=== PATIENT | female | born 1960 | race Caucasian/White ===

== ENCOUNTER 2017-09-01 11:40 | Inpatient (IN) | payer OTHER ==
[~2017-09-01] VITALS: Ht 167.6 cm; Wt 85.8 kg
[~2017-09-01 11:40] MED LIST: ABAC300; ACET325 PO; ASPI325 PO; Benadryl 50 mg50 MG PO; CIMZIA400 MG/2 M SQ; CLARITIN10 MG PO; DIPH50 PO; DULO60 PO; EPIN.3I IM; Epipen0.3 MG/0.3 IM; FAMO40 PO; FOLI1 PO; INSDET100 SQ; INSLIS75I SC; INSULANPEN SC; K-Dur20 MEQ PO; LEVEMIR FL100 UNIT/1 SC; METTREX2.5 PO; Methotrexa25 MG/1 ML; Methotrexate 1 G1 GM IM; PRED10 PO; PRED5 PO; Pepcid20 MG PO; Pepcid40 MG PO; Prednisone20 MG PO; RANI150 PO; RITUXAN; Rituxan10 MG/ML IV; SACC250C PO; SULTRIDS PO; Vistaril50 MG PO; ZYRTEC10 M1 PO; ZYRTEC10 M2 PO; Zantac150 MG PO
[2017-09-01 12:07] LABS: BASOPHILS ABSOLUTE AUTO 0.06 K/mm3 (0.00-0.23); BASOPHILS PERCENT AUTO 0 % (0-2); EOSINOPHILS PERCENT AUTO 0 % (0-6); Hematocrit 51.5 % (33.0-51.0); Hemoglobin 16.8 g/dL (11.5-16.0); IMMATURE GRAN ABSOLUTE AUTO 0.12 K/mm3 (0.00-0.10); IMMATURE GRAN PERCENT AUTO 1 % (0-1); LYMPHOCYTES ABSOLUTE AUTO 0.53 K/mm3 (0.84-5.20); LYMPHOCYTES PERCENT AUTO 4 % (21-46); MONOCYTES ABSOLUTE AUTO 1.58 K/mm3 (0.16-1.47); MONOCYTES PERCENT AUTO 11 % (4-13); Mean Corpuscular HGB 30.9 pg (26.0-34.0); Mean Corpuscular HGB Conc 32.6 g/dL (31.5-36.5); Mean Corpuscular Volume 95 fL (80-100); Mean Platelet Volume 9.6 fL (9.1-12.4); NEUTROPHILS ABSOLUTE AUTO 11.65 K/mm3 (1.96-9.15); NEUTROPHILS PERCENT AUTO 84 % (41-73); Platelet Count 194 K/mm3 (150-400); RDW Standard Deviation 42.1 fL (35.1-46.3); Red Blood Cell Count 5.43 M/mm3 (3.80-5.20); White Blood Cell Count 13.94 K/mm3 (4.00-11.30)
[2017-09-01 12:24] LABS: Influenza A Positive (NEGATIVE); Influenza B Negative (NEGATIVE)
[2017-09-01 12:29] LABS: Troponin I <0.015 ng/mL (0.000-0.040)
[2017-09-01 12:42] LABS: Alanine Aminotransfer (ALT/SGP 22 U/L (12-78); Albumin, Blood 3.2 g/dL (3.4-5.0); Albumin/Globulin Ratio 0.8 (0.8-1.8); Alk Phos 107 U/L (50-136); Aspartate Aminotrans (AST/SGOT 24 U/L (12-37); Bilirubin, Total 0.6 mg/dL (0.1-1.0); Blood Urea Nitrogen 36 mg/dL (8-24); Bun/Creatinine Ratio 73.8 (12.0-20.0); Calcium, Blood 8.5 mg/dL (8.5-10.1); Creatinine, Blood 0.49 mg/dL (0.40-1.00); Globulin, Blood 4.1 g/dL (2.2-4.0); Glomerular Filtration Rate >60 (60-); Glucose, Blood 348 mg/dL (70-99); Total Protein, Blood 7.3 g/dL (6.4-8.2)
[2017-09-01 12:53] LABS: Chloride, Blood 96 mmol/L (98-108); Potassium, Blood 4.9 mmol/L (3.5-5.5); Sodium, Blood 127 mmol/L (136-145)
[2017-09-01 13:10] LABS: Anion Gap 23 mmol/L (6-16)
[2017-09-01 13:12] LABS: CO2, Blood 8 mmol/L (21-32)
[2017-09-01 14:17] LABS: Base Excess Venous -22.6 mmol/L; Bicarbonate Venous 10.3 mmol/L (24.0-30.0); PO2 Venous 94.9 mmHg (38-42); pH Blood Venous 7.09 (7.34-7.37)
[2017-09-01 14:34] LABS: Beta-hydroxybutyrate 86.3 mg/dL (0.2-2.8)
[2017-09-01 18:31] LABS: Anion Gap 19 mmol/L (6-16); Blood Urea Nitrogen 27 mg/dL (8-24); Bun/Creatinine Ratio 64.7 (12.0-20.0); CO2, Blood 9 mmol/L (21-32); Calcium, Blood 7.6 mg/dL (8.5-10.1); Chloride, Blood 104 mmol/L (98-108); Creatinine, Blood 0.42 mg/dL (0.40-1.00); Glomerular Filtration Rate >60 (60-); Glucose, Blood 162 mg/dL (70-99); Potassium, Blood 3.9 mmol/L (3.5-5.5); Sodium, Blood 132 mmol/L (136-145)
[2017-09-02 04:13] LABS: Anion Gap 14 mmol/L (6-16); Blood Urea Nitrogen 17 mg/dL (8-24); Bun/Creatinine Ratio 57.6 (12.0-20.0); CO2, Blood 15 mmol/L (21-32); Calcium, Blood 7.6 mg/dL (8.5-10.1); Chloride, Blood 101 mmol/L (98-108); Glomerular Filtration Rate >60 (60-); Glucose, Blood 201 mg/dL (70-99); Potassium, Blood 3.3 mmol/L (3.5-5.5); Sodium, Blood 130 mmol/L (136-145)
[2017-09-02 09:21] LABS: Source, Urine Clean Catch
[2017-09-02 09:23] LABS: Bilirubin, Urine Neg (Neg); Blood, Urine 1+ (Neg); Glucose Qualitative, Urine 4+ (Neg); Ketones, Urine 4+ (Neg); Leukocyte Esterase, Urine Neg (Neg); Nitrite, Urine Neg (Neg); Protein, Urine 2+ (Neg); Urobilinogen, Urine NORM (Normal)
[2017-09-02 09:35] LABS: Appearance, Urine Hazy (Clear); Color, Urine Yellow (P-Yellow)
[2017-09-02 09:39] LABS: White Blood Cells, Urine 0-2 /hpf (0-5)
[2017-09-02 09:40] LABS: Bacteria Few /hpf; Granular Casts 0-2 /lpf (0); Red Blood Cells, Urine 0-2 /hpf (0-2); Squamous Epithelial Cells Rare /hpf (Few)
[2017-09-02 09:43] LABS: Magnesium, Blood 1.8 mg/dL (1.6-2.4)
[2017-09-02 09:47] LABS: Phosphorus, Blood 0.7 mg/dL (2.5-4.9)
[2017-09-02 12:40] LABS: BASOPHILS ABSOLUTE AUTO 0.04 K/mm3 (0.00-0.23); BASOPHILS PERCENT AUTO 1 % (0-2); Hematocrit 41.8 % (33.0-51.0); Hemoglobin 14.8 g/dL (11.5-16.0); LYMPHOCYTES ABSOLUTE AUTO 0.48 K/mm3 (0.84-5.20); LYMPHOCYTES PERCENT AUTO 6 % (21-46); MONOCYTES ABSOLUTE AUTO 1.27 K/mm3 (0.16-1.47); MONOCYTES PERCENT AUTO 16 % (4-13); Mean Corpuscular HGB Conc 35.4 g/dL (31.5-36.5); Mean Platelet Volume 9.5 fL (9.1-12.4); Platelet Count 147 K/mm3 (150-400); RDW Coefficient Variation 11.6 % (11.7-14.2); RDW Standard Deviation 37.5 fL (35.1-46.3); Red Blood Cell Count 4.78 M/mm3 (3.80-5.20); White Blood Cell Count 8.12 K/mm3 (4.00-11.30)
[2017-09-02 12:42] LABS: EOSINOPHILS PERCENT AUTO 0 % (0-6); IMMATURE GRAN ABSOLUTE AUTO 0.02 K/mm3 (0.00-0.10); IMMATURE GRAN PERCENT AUTO 0 % (0-1); Mean Corpuscular Volume 87 fL (80-100); NEUTROPHILS ABSOLUTE AUTO 6.31 K/mm3 (1.96-9.15); NEUTROPHILS PERCENT AUTO 78 % (41-73)
[2017-09-02 12:51] LABS: Anion Gap 13 mmol/L (6-16); Blood Urea Nitrogen 13 mg/dL (8-24); Bun/Creatinine Ratio 43.5 (12.0-20.0); CO2, Blood 15 mmol/L (21-32); Chloride, Blood 103 mmol/L (98-108); Glomerular Filtration Rate >60 (60-); Glucose, Blood 172 mg/dL (70-99); Potassium, Blood 3.8 mmol/L (3.5-5.5); Sodium, Blood 131 mmol/L (136-145)
[2017-09-02 13:08] LABS: BASOPHILS PERCENT MAN 0 % (0-2); EOSINOPHILS PERCENT MAN 0 % (0-6); LYMPHOCYTES ABSOLUTE MAN 1.05 K/mm3 (0.84-5.20); LYMPHOCYTES PERCENT MAN 13 % (21-46); MONOCYTES ABSOLUTE MAN 0.32 K/mm3 (0.16-1.47); MONOCYTES PERCENT MAN 4 % (4-13); NEUTROPHILS ABSOLUTE MAN 6.73 K/mm3 (1.96-9.15); SEG NEUTROPHILS PERCENT MAN 83 % (41-73); TOTAL CELLS COUNTED 100
[2017-09-03 03:36] LABS: BASOPHILS ABSOLUTE AUTO 0.02 K/mm3 (0.00-0.23); BASOPHILS PERCENT AUTO 0 % (0-2); Hematocrit 41.4 % (33.0-51.0); Hemoglobin 14.3 g/dL (11.5-16.0); LYMPHOCYTES ABSOLUTE AUTO 0.64 K/mm3 (0.84-5.20); LYMPHOCYTES PERCENT AUTO 8 % (21-46); MONOCYTES ABSOLUTE AUTO 1.16 K/mm3 (0.16-1.47); MONOCYTES PERCENT AUTO 15 % (4-13); Mean Corpuscular HGB 30.9 pg (26.0-34.0); Mean Corpuscular HGB Conc 34.5 g/dL (31.5-36.5); Mean Corpuscular Volume 89 fL (80-100); Mean Platelet Volume 9.4 fL (9.1-12.4); Platelet Count 125 K/mm3 (150-400); RDW Coefficient Variation 12.1 % (11.7-14.2); RDW Standard Deviation 39.9 fL (35.1-46.3); Red Blood Cell Count 4.63 M/mm3 (3.80-5.20); White Blood Cell Count 7.64 K/mm3 (4.00-11.30)
[2017-09-03 03:54] LABS: Alanine Aminotransfer (ALT/SGP 13 U/L (12-78); Albumin/Globulin Ratio 0.6 (0.8-1.8); Alk Phos 67 U/L (50-136); Anion Gap 13 mmol/L (6-16); Aspartate Aminotrans (AST/SGOT 14 U/L (12-37); Bilirubin, Total 0.5 mg/dL (0.1-1.0); Blood Urea Nitrogen 11 mg/dL (8-24); Bun/Creatinine Ratio 36.7 (12.0-20.0); CO2, Blood 16 mmol/L (21-32); Calcium, Blood 7.5 mg/dL (8.5-10.1); Chloride, Blood 109 mmol/L (98-108); Globulin, Blood 3.6 g/dL (2.2-4.0); Glomerular Filtration Rate >60 (60-); Glucose, Blood 181 mg/dL (70-99); Phosphorus, Blood 1.1 mg/dL (2.5-4.9); Potassium, Blood 3.4 mmol/L (3.5-5.5); Sodium, Blood 138 mmol/L (136-145); Total Protein, Blood 5.6 g/dL (6.4-8.2)
[2017-09-03 03:55] LABS: EOSINOPHILS PERCENT AUTO 0 % (0-6); IMMATURE GRAN ABSOLUTE AUTO 0.04 K/mm3 (0.00-0.10); IMMATURE GRAN PERCENT AUTO 1 % (0-1); NEUTROPHILS ABSOLUTE AUTO 5.78 K/mm3 (1.96-9.15); NEUTROPHILS PERCENT AUTO 76 % (41-73)
[2017-09-04 04:05] LABS: BASOPHILS ABSOLUTE AUTO 0.02 K/mm3 (0.00-0.23); BASOPHILS PERCENT AUTO 0 % (0-2); EOSINOPHILS ABSOLUTE AUTO 0.03 K/mm3 (0.00-0.68); EOSINOPHILS PERCENT AUTO 0 % (0-6); Hematocrit 38.1 % (33.0-51.0); Hemoglobin 13.6 g/dL (11.5-16.0); IMMATURE GRAN ABSOLUTE AUTO 0.09 K/mm3 (0.00-0.10); IMMATURE GRAN PERCENT AUTO 1 % (0-1); LYMPHOCYTES ABSOLUTE AUTO 1.03 K/mm3 (0.84-5.20); LYMPHOCYTES PERCENT AUTO 13 % (21-46); MONOCYTES ABSOLUTE AUTO 1.08 K/mm3 (0.16-1.47); MONOCYTES PERCENT AUTO 14 % (4-13); Mean Corpuscular HGB 31.3 pg (26.0-34.0); Mean Corpuscular HGB Conc 35.7 g/dL (31.5-36.5); Mean Corpuscular Volume 88 fL (80-100); Mean Platelet Volume 9.6 fL (9.1-12.4); NEUTROPHILS ABSOLUTE AUTO 5.72 K/mm3 (1.96-9.15); NEUTROPHILS PERCENT AUTO 72 % (41-73); Platelet Count 128 K/mm3 (150-400); RDW Coefficient Variation 12.1 % (11.7-14.2); RDW Standard Deviation 39.5 fL (35.1-46.3); Red Blood Cell Count 4.34 M/mm3 (3.80-5.20); White Blood Cell Count 7.97 K/mm3 (4.00-11.30)
[2017-09-04 04:22] LABS: Anion Gap 13 mmol/L (6-16); Blood Urea Nitrogen 7 mg/dL (8-24); Bun/Creatinine Ratio 23.4 (12.0-20.0); CO2, Blood 21 mmol/L (21-32); Calcium, Blood 7.8 mg/dL (8.5-10.1); Chloride, Blood 105 mmol/L (98-108); Glomerular Filtration Rate >60 (60-); Glucose, Blood 183 mg/dL (70-99); Magnesium, Blood 1.9 mg/dL (1.6-2.4); Phosphorus, Blood 1.1 mg/dL (2.5-4.9); Sodium, Blood 139 mmol/L (136-145)
[2017-09-04 17:06] LABS: Anion Gap 10 mmol/L (6-16); Blood Urea Nitrogen 10 mg/dL (8-24); Bun/Creatinine Ratio 33.1 (12.0-20.0); CO2, Blood 22 mmol/L (21-32); Calcium, Blood 8.3 mg/dL (8.5-10.1); Chloride, Blood 106 mmol/L (98-108); Glomerular Filtration Rate >60 (60-); Glucose, Blood 185 mg/dL (70-99); Potassium, Blood 3.4 mmol/L (3.5-5.5); Sodium, Blood 138 mmol/L (136-145)
[2017-09-05 09:04] LABS: Anion Gap 9 mmol/L (6-16); Blood Urea Nitrogen 8 mg/dL (8-24); Bun/Creatinine Ratio 31.5 (12.0-20.0); CO2, Blood 25 mmol/L (21-32); Calcium, Blood 8.2 mg/dL (8.5-10.1); Chloride, Blood 102 mmol/L (98-108); Creatinine, Blood 0.25 mg/dL (0.40-1.00); Glomerular Filtration Rate >60 (60-); Glucose, Blood 203 mg/dL (70-99); Sodium, Blood 136 mmol/L (136-145)
[2017-09-05] MEDS ORDERED: ACET500 PO (13:39)
[2017-09-05] MEDS ORDERED: OSEL75CA PO (13:40)
[2017-09-05] MEDS ORDERED: PANT40 PO (13:41)
[2017-09-05] MEDS ORDERED: K-Phos Origina500 MG PO (13:43)
[2017-09-05] MEDS ORDERED: Levaquin750 MG PO (13:44)
[2017-09-05] MEDS ORDERED: Micro-K10 MEQ PO (13:46)
[2017-09-05 19:07] LABS: Anion Gap 9 mmol/L (6-16); Blood Urea Nitrogen 6 mg/dL (8-24); Bun/Creatinine Ratio 24.3 (12.0-20.0); CO2, Blood 26 mmol/L (21-32); Calcium, Blood 7.9 mg/dL (8.5-10.1); Chloride, Blood 103 mmol/L (98-108); Creatinine, Blood 0.25 mg/dL (0.40-1.00); Glomerular Filtration Rate >60 (60-); Glucose, Blood 203 mg/dL (70-99); Potassium, Blood 3.4 mmol/L (3.5-5.5); Sodium, Blood 138 mmol/L (136-145)
== END 2017-09-05 19:40 | disposition home or self-care (01) | DRG 871 ==
LOC: ER 11:40 → ICUW 13:23 → ERHOLD 13:23 → ICUW 16:57 → PCU 09-04 14:43
PROVIDERS: Family Medicine; Internal Medicine; Physician Assistant
PROC: 3E0234Z Introduction of Serum, Toxoid and Vaccine into Muscle, Percutaneous Approach (ICD-10-PCS; principal; 2017-09-01)
DX: A41.9 Sepsis, unspecified organism (principal); E11.10 Type 2 diabetes mellitus with ketoacidosis without coma; J10.00 Influenza due to other identified influenza virus with unspecified type of pneumonia; D75.1 Secondary polycythemia; E83.39 Other disorders of phosphorus metabolism; E87.1 Hypo-osmolality and hyponatremia; E86.9 Volume depletion, unspecified; Z23 Encounter for immunization; M06.9 Rheumatoid arthritis, unspecified; M85.80 Other specified disorders of bone density and structure, unspecified site; E87.6 Hypokalemia
CPT/HCPCS: 36415; 51702; 71045; 71046; 80048; 80053; 81001; 82010; 82803; 82947; 83605; 83735; 84100; 84484; 85025; 87040; 87493; 87804; 93005; 93010; 96361; 96374; 97116; 97162; 99285; C9113; G8978; G8979; J0456; J0610; J0696; J1650; J1815; J2001; J3370; J3480; J7030; J7040; J7050; J7060; J7070

== ENCOUNTER → 2020-07-08 | Outpatient (CLI) | payer OTHER ==
[~2020-07-08] MED LIST changes: +ACET500 PO; +ASPI81CH PO; +ATOR80 PO; +CHOLECALCIFEROL PO; +K-Phos Origina500 MG PO; +Levaquin750 MG PO; +METFORMIN HCL500 M3 PO; +METO25ER PO; +Micro-K10 MEQ PO; +OSEL75CA PO; +PANT40 PO; +TICA90TA PO
== END | disposition home or self-care (01) ==
LOC: LAB 13:02
DX: L02.31 Cutaneous abscess of buttock (principal)
CPT/HCPCS: 87070; 87075; 87205

== ENCOUNTER 2020-08-27 04:06 | Inpatient (IN) | payer OTHER ==
[~2020-08-27] VITALS: Ht 175.3 cm; Wt 92.8 kg
[~2020-08-27 04:06] MED LIST changes: -ASPI81CH PO; -ATOR80 PO; -CHOLECALCIFEROL PO; -METFORMIN HCL500 M3 PO; -METO25ER PO; -TICA90TA PO
[2020-08-27 04:25] LABS: Calcium, Ionized (POC) 0.96 mmol/L (1.10-1.46); Chloride (POC) 103 mmol/L (98-108); Creatinine (POC) 0.5 mg/dL (0.6-1.0); Glucose (ISTAT POC) 323 mg/dL (70-99); Hemoglobin (POC) 19.4 g/dL (12.0-16.0); Potassium (POC) 7.6 mmol/L (3.5-5.5); Sodium (POC) 131 mmol/L (135-148); Total CO2 (POC) 26 mmol/L (21-32)
[2020-08-27 04:38] LABS: Hematocrit 54.8 % (33.0-51.0); Hemoglobin 18.5 g/dL (11.5-16.0); Mean Corpuscular HGB Conc 33.8 g/dL (31.5-36.5); Mean Corpuscular Volume 92 fL (80-100); Mean Platelet Volume 10.6 fL (9.1-12.4); Platelet Count 238 K/mm3 (150-400); RDW Coefficient Variation 11.9 % (11.7-14.2); RDW Standard Deviation 40.4 fL (35.1-46.3); Red Blood Cell Count 5.96 M/mm3 (3.80-5.20); White Blood Cell Count 11.41 K/mm3 (4.00-11.30)
[2020-08-27 05:44] LABS: BASOPHILS ABSOLUTE AUTO 0.06 K/mm3 (0.00-0.23); BASOPHILS PERCENT AUTO 1 % (0-2); EOSINOPHILS ABSOLUTE AUTO 0.14 K/mm3 (0.00-0.68); EOSINOPHILS PERCENT AUTO 1 % (0-6); Hematocrit 47.6 % (33.0-51.0); Hemoglobin 15.8 g/dL (11.5-16.0); IMMATURE GRAN ABSOLUTE AUTO 0.09 K/mm3 (0.00-0.10); IMMATURE GRAN PERCENT AUTO 1 % (0-1); LYMPHOCYTES PERCENT AUTO 10 % (21-46); MONOCYTES ABSOLUTE AUTO 0.64 K/mm3 (0.16-1.47); MONOCYTES PERCENT AUTO 5 % (4-13); Mean Corpuscular HGB 30.6 pg (26.0-34.0); Mean Corpuscular HGB Conc 33.2 g/dL (31.5-36.5); Mean Corpuscular Volume 92 fL (80-100); NEUTROPHILS ABSOLUTE AUTO 10.32 K/mm3 (1.96-9.15); NEUTROPHILS PERCENT AUTO 82 % (41-73); Platelet Count 225 K/mm3 (150-400); RDW Coefficient Variation 11.8 % (11.7-14.2); RDW Standard Deviation 40.5 fL (35.1-46.3); Red Blood Cell Count 5.17 M/mm3 (3.80-5.20); White Blood Cell Count 12.55 K/mm3 (4.00-11.30)
[2020-08-27 06:01] LABS: International Normalized Ratio 1.07; Prothrombin Time Results 11.4 Sec (9.7-11.5)
[2020-08-27 06:08] LABS: Alanine Aminotransfer (ALT/SGP 26 U/L (12-78); Albumin, Blood 2.7 g/dL (3.4-5.0); Albumin/Globulin Ratio 0.8 (0.8-1.8); Alk Phos 70 U/L (50-136); Anion Gap 9 mmol/L (6-16); Aspartate Aminotrans (AST/SGOT 53 U/L (12-37); Bilirubin, Total 0.5 mg/dL (0.1-1.0); Blood Urea Nitrogen 18 mg/dL (8-24); Bun/Creatinine Ratio 41.8 (12.0-20.0); CHOL/HDL RATIO 3.6; CO2, Blood 23 mmol/L (21-32); Chloride, Blood 104 mmol/L (98-108); Cholesterol 186 mg/dL (50-200); Creatinine, Blood 0.43 mg/dL (0.40-1.00); Globulin, Blood 3.4 g/dL (2.2-4.0); Glomerular Filtration Rate >60 (60-); Glucose, Blood 321 mg/dL (70-99); HDL Cholesterol 51 mg/dL (>39); LDL/HDL RATIO 2.4; Low Density Lipoprotein Chol 121 mg/dL (0-110); Potassium, Blood 4.2 mmol/L (3.5-5.5); Sodium, Blood 136 mmol/L (136-145); Total Protein, Blood 6.1 g/dL (6.4-8.2); Triglycerides 69 mg/dL (30-160); Very Low Density Lipoprot Chol 13 mg/dL (6-32)
[2020-08-27 06:42] LABS: Influenza A, PCR NEGATIVE (NEGATIVE); Influenza B, PCR NEGATIVE (NEGATIVE); Resp Syncytial Virus, PCR NEGATIVE (NEGATIVE); SARS-Cov-2 (COVID-19) PCR, MMC NEGATIVE (NEGATIVE)
[2020-08-27] MEDS ORDERED: CHOLECALCIFEROL PO (07:07)
[2020-08-27] MEDS ORDERED: METFORMIN HCL500 M3 PO (07:08)
--- NOTE | 2020-08-27 07:32 | NUR ---
manager labor relations to ICU-10 at 0545 Pt arrived to ICU-10 accompanied by laborer beam house nurses post intervention. Pt denies CP at this time but states nausea, no active vomiting. TR band to right radial site inflated with 10 cc of air. No hematoma, oozing, or tenderness at site. Pt educated on not bending wrist, pt states understanding. Arm board in place. Pt on RA, BP stable, and EKG performed per Dr. Singh, pt has ST-elevation. Dr. Singh in to see pt, no new orders recieved. Dr. Mason also called in regards to pts nausea and provider to put in orders for Zofran. Call light within reach. at bedside. All questions answered. Will report to oncoming shift.
--- NOTE | 2020-08-27 16:48 | NUR ---
SHIFT SUMMARY: VSS THROUGHOUT SHIFT, BS HIGH AT BEGINNING OF SHIFT @ 325, TRENDED DOWN AFTER LONG ACTING INSULIN AND SS GIVEN. NO PAIN, TR BAND OFF BY 1400. FIRST ATTEMPT OF REMOVAL OF 1ML AIR, BLEEDING IMMEDIATELY. PATIENT HAD RECIEVED HEPARIN AND SHE IS ON BRILLINTA, SO GREAT CARE TAKEN WHEN REMOVING TR BAND. UP TO BEDSIDE COMMODE WITH ONE ASSIST. 2 BM TODAY AND VOIDING FINE. PATIENT HAD VOMITED FOR THE FIRST FEW HOURS OF THE SHIFT, WITH A TOTAL OF 700 EMESIS, ZOFRAN GIVEN WITH NO RESULT, COMPAZINE GIVEN WITH GREAT RESULTS. PRN COMPAZINE AVAIL Q4. DECREASED APPETITE AT LUNCH, WILL CONTINUE TO MONITOR.
--- NOTE | 2020-08-27 20:11 | NUR ---
PATIENT A/OX3. DENIES PAIN. DENIES CHEST PAIN. MONITOR SHOWS SINUS RHYTHM WITH ST ELEVATION, UNCHANGED FROM PREVIOUSLY. WAS ON 4L O2 VIA NC WHEN I CAME INTO THE ROOM. SHE DOES NOT WEAR O2 AT HOME. REMOVED O2 TO TRANSFER PATIENT TO BEDSIDE COMMODE AND SPO2 REMAINED IN 90'S ON ROOM AIR. UP TO BEDSIDE COMMODE WITH STAND BY ASSIST. ARMBOARD PLACED TO R WRIST. R RADIAL SITE WITH 2+ PULSE, GOOD PLETH, PATIENT DENIES PAIN AND NUMBNESS/TINGLING T R HAND. R HAND IS COOL BUT SO IS L HAND, PATIENT STATES NORMAL FOR HER. TEGADERM PLACED TO R RADIAL SITE, NO ACTIVE BLEEDING NOTED. BRUISING NOTED TO R BUTTOCKS, PATIENT STATES THIS IS FROM A PRIOR CYST REMOVAL. DISCUSSED POC FOR SHIFT. CALL LIGHT IN REACH. BED ALARM ON FOR SAFETY.
--- NOTE | 2020-08-28 00:52 | NUR ---
UPDATE: PATIENT CONTINUES TO DENY PAIN. DENIES CHEST PAIN. TROPONIN TRENDING DOWN. REQUESTED TO BE PLACED ON OXYGEN, STATES "IT FEELS LIKE I HAVE TROUBLE BREATHING WHEN I CLOSE MY EYES". STATES HER ROOM AT HOME HAS A LOT OF AIRFLOW. PLACED FAN ON BEDSIDE TABLE AND TOWARDS PATIENT PER HER REQUEST. SPO2 IN 90'S. TELE REMAINS UNCHANGED, SINUS RHYTHM. ARMBOARD REMAINS IN PLACE TO R WRIST, NO CHANGES TO SITE. CALL LIGHT IN REACH. BED ALARM ON.
--- NOTE | 2020-08-28 06:48 | NUR ---
SHIFT SUMMARY: PATIENT A/OX3. HAS DENIED PAIN THROUGHOUT THE SHIFT. HAS DENIED CHEST PAIN THROUGHOUT THE SHIFT. ON ROOM AIR WHEN AWAKE BUT WEARS IT AT NIGHT FOR COMFORT, STATES SHE FEELS LIKE SHE NEEDS A COOL BREEZE LIKE HER ROOM AT HOME. HBA1C PENDING. SEMGLEE ADJUSTED PER MD. WILL CONTINUE TO MONITOR AND REPORT TO ONCOMING RN.
--- NOTE | 2020-08-28 07:02 | NUR ---
Assumed car, patient resting in bed. VSS, bedside report complete. No questions from patient.
[2020-08-28] MEDS ORDERED: TICA90TA PO (09:50)
[2020-08-28] MEDS ORDERED: ASPI81CH PO (09:56)
[2020-08-28] MEDS ORDERED: ATOR80 PO ×2 (09:56→11:00)
[2020-08-28] MEDS ORDERED: METO25ER PO (09:57)
--- NOTE | 2020-08-28 11:45 | NUR ---
DISCHARGE INSTRUCTIONS GIVEN TO PATIENT WITH PRINTED INSTRUCTIONS FOR RADIAL PRECAUTIONS, BRILINTA USE/CAUTIONS, BLEEDING PRECAUTIONS FOR NEW ANTICOAGULANT, RX FOR LIPITOR AND METOPROLOL XL AND HEART HEALTHY DIETS/PROCEDURE. IV REMOVED AND TELE REMOVED SON CAME TO PICK THE PATIENT UP, SO WENT OVER ALL OF THE EDUCATION AND GAVE HIM THE RX'S FOR HIS MOM. PATIENT ESCORTED OUT WITH ALL POSSESIONS IN HAND, VIA WHEELCHAIR, TO CAR.
== END 2020-08-28 12:10 | disposition home or self-care (01) | DRG 247 ==
LOC: ER 04:06 → ICUW 04:19
PROVIDERS: Emergency Medicine; ADMIT Internal Medicine Interventional Cardiology
PROC: 027034Z Dilation of Coronary Artery, One Artery with Drug-eluting Intraluminal Device, Percutaneous Approach (ICD-10-PCS; principal; 2020-08-27)
PROC: 4A023N7 Measurement of Cardiac Sampling and Pressure, Left Heart, Percutaneous Approach (ICD-10-PCS; 2020-08-27)
PROC: B2111ZZ Fluoroscopy of Multiple Coronary Arteries using Low Osmolar Contrast (ICD-10-PCS; 2020-08-27)
DX: I21.09 ST elevation (STEMI) myocardial infarction involving other coronary artery of anterior wall (principal); Z79.4 Long term (current) use of insulin; Z87.891 Personal history of nicotine dependence; M06.9 Rheumatoid arthritis, unspecified; E11.9 Type 2 diabetes mellitus without complications; Z86.73 Personal history of transient ischemic attack (TIA), and cerebral infarction without residual deficits; E66.9 Obesity, unspecified; Z68.30 Body mass index [BMI] 30.0-30.9, adult; Z20.822 Contact with and (suspected) exposure to COVID-19
CPT/HCPCS: 0241U; 36415; 76937; 80047; 80053; 80061; 82947; 83036; 83735; 84484; 85014; 85025; 85027; 85347; 85610; 86850; 86900; 86901; 93005; 93010; 93458; 96374; 99152; 99153; 99285-25; A9270; C1725; C1769; C1874; C1887; C1894; C8929; C9606; J0780; J1644; J1650; J2250; J2405; J3010; J7030; J7040; J7050; Q9957; Q9967

== ENCOUNTER → 2021-01-11 | Outpatient (CLI) | payer OTHER ==
[~2021-01-11] MED LIST changes: +ASPI81CH PO; +ATOR80 PO; +CHOLECALCIFEROL PO; +METFORMIN HCL500 M3 PO; +METO25ER PO; +TICA90TA PO
== END | disposition home or self-care (01) ==
LOC: PLD 14:20 → LAB SHORT 14:20
DX: N39.0 Urinary tract infection, site not specified (principal)
CPT/HCPCS: 87086; 87147

== ENCOUNTER → 2021-03-25 | Outpatient (CLI) | payer OTHER | END | disposition home or self-care (01) | LOC: LAB 09:30 → LAB SHORT 09:30 | DX: R30.0 Dysuria (principal) | CPT/HCPCS: 87086 ==

== ENCOUNTER → 2021-03-31 | Outpatient (CLI) | payer OTHER | END | disposition home or self-care (01) | LOC: LAB SHORT 11:10 → LAB 11:10 | DX: R30.9 Painful micturition, unspecified (principal) | CPT/HCPCS: 87086 ==

== ENCOUNTER 2021-06-04 17:53 | Emergency (ER) | payer OTHER ==
[~2021-06-04] VITALS: Ht 162.6 cm; Wt 90.7 kg
[2021-06-04 18:25] LABS: BASOPHILS ABSOLUTE AUTO 0.04 K/mm3 (0.00-0.23); BASOPHILS PERCENT AUTO 0 % (0-2); EOSINOPHILS ABSOLUTE AUTO 0.06 K/mm3 (0.00-0.68); EOSINOPHILS PERCENT AUTO 0 % (0-6); Hematocrit 41.6 % (33.0-51.0); Hemoglobin 13.9 g/dL (11.5-16.0); IMMATURE GRAN ABSOLUTE AUTO 0.08 K/mm3 (0.00-0.10); IMMATURE GRAN PERCENT AUTO 1 % (0-1); LYMPHOCYTES ABSOLUTE AUTO 1.47 K/mm3 (0.84-5.20); LYMPHOCYTES PERCENT AUTO 9 % (21-46); MONOCYTES ABSOLUTE AUTO 0.93 K/mm3 (0.16-1.47); MONOCYTES PERCENT AUTO 6 % (4-13); Mean Corpuscular HGB 31.4 pg (26.0-34.0); Mean Corpuscular HGB Conc 33.4 g/dL (31.5-36.5); Mean Corpuscular Volume 94 fL (80-100); Mean Platelet Volume 9.3 fL (9.1-12.4); NEUTROPHILS PERCENT AUTO 84 % (41-73); Platelet Count 323 K/mm3 (150-400); RDW Coefficient Variation 13.9 % (11.7-14.2); RDW Standard Deviation 48.7 fL (35.1-46.3); Red Blood Cell Count 4.43 M/mm3 (3.80-5.20); White Blood Cell Count 16.48 K/mm3 (4.00-11.30)
[2021-06-04 18:49] LABS: Alanine Aminotransfer (ALT/SGP 28 U/L (12-78); Albumin, Blood 3.1 g/dL (3.4-5.0); Albumin/Globulin Ratio 0.7 (0.8-1.8); Alk Phos 91 U/L (50-136); Anion Gap 6 mmol/L (6-16); Aspartate Aminotrans (AST/SGOT 28 U/L (12-37); Bilirubin, Total 0.5 mg/dL (0.1-1.0); Blood Urea Nitrogen 32 mg/dL (8-24); Bun/Creatinine Ratio 71.3 (12.0-20.0); CO2, Blood 29 mmol/L (21-32); Calcium, Blood 9.7 mg/dL (8.5-10.1); Chloride, Blood 100 mmol/L (98-108); Creatinine, Blood 0.45 mg/dL (0.40-1.00); Globulin, Blood 4.2 g/dL (2.2-4.0); Glomerular Filtration Rate >60 (60-); Glucose, Blood 235 mg/dL (70-99); Potassium, Blood 3.4 mmol/L (3.5-5.5); Sodium, Blood 135 mmol/L (136-145); Total Protein, Blood 7.3 g/dL (6.4-8.2); Troponin I <0.015 ng/mL (0.000-0.040)
== END 2021-06-04 20:04 | disposition left against medical advice (07) ==
LOC: ER 17:53
PROVIDERS: Physician Assistant
DX: R11.2 Nausea with vomiting, unspecified (principal); Z53.21 Procedure and treatment not carried out due to patient leaving prior to being seen by health care provider
CPT/HCPCS: 36415; 71046; 80053; 84484; 85025; 93005; 93010; 99284-25

== ENCOUNTER 2021-07-20 11:58 | Inpatient (IN) | payer OTHER ==
[~2021-07-20] VITALS: Ht 160 cm; Wt 87.2 kg
[~2021-07-20 11:58] MED LIST changes: +ATOR40TA PO; +GLUCOPHAGE1000 M1 PO; -METFORMIN HCL500 M3 PO
[2021-07-20 12:46] LABS: BASOPHILS ABSOLUTE AUTO 0.01 K/mm3 (0.00-0.23); BASOPHILS PERCENT AUTO 0 % (0-2); EOSINOPHILS PERCENT AUTO 0 % (0-6); Hematocrit 36.9 % (33.0-51.0); Hemoglobin 12.7 g/dL (11.5-16.0); IMMATURE GRAN ABSOLUTE AUTO 0.12 K/mm3 (0.00-0.10); IMMATURE GRAN PERCENT AUTO 1 % (0-1); LYMPHOCYTES ABSOLUTE AUTO 0.44 K/mm3 (0.84-5.20); LYMPHOCYTES PERCENT AUTO 4 % (21-46); MONOCYTES ABSOLUTE AUTO 0.63 K/mm3 (0.16-1.47); MONOCYTES PERCENT AUTO 6 % (4-13); Mean Corpuscular HGB 31.1 pg (26.0-34.0); Mean Corpuscular HGB Conc 34.4 g/dL (31.5-36.5); Mean Corpuscular Volume 90 fL (80-100); NEUTROPHILS ABSOLUTE AUTO 9.18 K/mm3 (1.96-9.15); NEUTROPHILS PERCENT AUTO 88 % (41-73); Platelet Count 284 K/mm3 (150-400); RDW Coefficient Variation 12.4 % (11.7-14.2); RDW Standard Deviation 41.1 fL (35.1-46.3); Red Blood Cell Count 4.08 M/mm3 (3.80-5.20); White Blood Cell Count 10.38 K/mm3 (4.00-11.30)
[2021-07-20 12:52] LABS: Troponin I <0.015 ng/mL (0.000-0.040)
[2021-07-20 12:53] LABS: Alanine Aminotransfer (ALT/SGP 37 U/L (12-78); Albumin, Blood 2.2 g/dL (3.4-5.0); Albumin/Globulin Ratio 0.6 (0.8-1.8); Alk Phos 64 U/L (50-136); Anion Gap 11 mmol/L (6-16); Aspartate Aminotrans (AST/SGOT 53 U/L (12-37); Bilirubin, Total 0.6 mg/dL (0.1-1.0); Blood Urea Nitrogen 37 mg/dL (8-24); Bun/Creatinine Ratio 50.8 (12.0-20.0); CO2, Blood 24 mmol/L (21-32); Calcium, Blood 8.6 mg/dL (8.5-10.1); Chloride, Blood 98 mmol/L (98-108); Creatinine, Blood 0.73 mg/dL (0.40-1.00); Globulin, Blood 3.7 g/dL (2.2-4.0); Glomerular Filtration Rate >60 (60-); Glucose, Blood 114 mg/dL (70-99); Potassium, Blood 3.5 mmol/L (3.5-5.5); Sodium, Blood 133 mmol/L (136-145); Total Protein, Blood 5.9 g/dL (6.4-8.2)
[2021-07-20 14:17] LABS: Source, Urine Voided
[2021-07-20 14:30] LABS: Appearance, Urine Hazy (Clear); Bilirubin, Urine Neg (Neg); Blood, Urine 5+ (Neg); Color, Urine Yellow (P-Yellow); Glucose Qualitative, Urine 3+ (Neg); Ketones, Urine Neg (Neg); Leukocyte Esterase, Urine 3+ (Neg); Nitrite, Urine Neg (Neg); Protein, Urine 2+ (Neg); Urobilinogen, Urine NORM (Normal)
[2021-07-20 14:50] LABS: White Blood Cells, Urine TNTC /hpf (0-5)
[2021-07-20 14:51] LABS: Bacteria Many /hpf; Squamous Epithelial Cells Few /hpf (Few); Transitional Epithelial Cells Few /hpf (0-Rare)
[2021-07-20] MEDS ORDERED: FLOVENT HFA12 GM INH (21:07)
[2021-07-20] MEDS ORDERED: Ventolin/Prove6.7 GM INH (21:08)
[2021-07-20] MEDS ORDERED: GLIP10 PO (21:09)
[2021-07-20] MEDS ORDERED: OMEP20ER PO (21:10)
[2021-07-20] MEDS ORDERED: ONDA4ODT SL (21:11)
[2021-07-20] MEDS ORDERED: ACTOS30 MG PO (21:12)
[2021-07-20] MEDS ORDERED: XIIDRA1 EACH BOTHEYES (21:14)
--- NOTE | 2021-07-21 05:16 | NUR ---
PATIENT WAS ALERT AND ORIENTED X3, STABLE VITAL SIGNS. PATIENT HAD A BLOOD GLUCOSE LEVEL OF 49 AND WAS GIVEN APPLE JUICE AND 25ML OF DEXTROSE VIA IV AND HER BLOOD GLUCOSE LEVEL CAME UP TO 143. PATIENT IS VERY WEAK AND REQUIRE A 2 PERSON ASSIST. CALL LIGHT WITH IN REACH AND BED TO THE LOWEST POSTION. PATIENT SLEPT FOR MOST OF THE NIGHT
[2021-07-21 05:19] LABS: BASOPHILS ABSOLUTE AUTO 0.02 K/mm3 (0.00-0.23); BASOPHILS PERCENT AUTO 0 % (0-2); EOSINOPHILS PERCENT AUTO 0 % (0-6); Hematocrit 36.6 % (33.0-51.0); Hemoglobin 12.9 g/dL (11.5-16.0); IMMATURE GRAN ABSOLUTE AUTO 0.07 K/mm3 (0.00-0.10); IMMATURE GRAN PERCENT AUTO 1 % (0-1); LYMPHOCYTES ABSOLUTE AUTO 0.38 K/mm3 (0.84-5.20); LYMPHOCYTES PERCENT AUTO 6 % (21-46); MONOCYTES ABSOLUTE AUTO 0.36 K/mm3 (0.16-1.47); MONOCYTES PERCENT AUTO 6 % (4-13); Mean Corpuscular HGB 31.5 pg (26.0-34.0); Mean Corpuscular HGB Conc 35.2 g/dL (31.5-36.5); Mean Corpuscular Volume 89 fL (80-100); Mean Platelet Volume 9.7 fL (9.1-12.4); NEUTROPHILS ABSOLUTE AUTO 5.55 K/mm3 (1.96-9.15); NEUTROPHILS PERCENT AUTO 87 % (41-73); Platelet Count 240 K/mm3 (150-400); RDW Coefficient Variation 12.4 % (11.7-14.2); RDW Standard Deviation 40.9 fL (35.1-46.3); White Blood Cell Count 6.38 K/mm3 (4.00-11.30)
[2021-07-21 05:33] LABS: Anion Gap 7 mmol/L (6-16); Blood Urea Nitrogen 16 mg/dL (8-24); Bun/Creatinine Ratio 38.9 (12.0-20.0); CO2, Blood 27 mmol/L (21-32); Calcium, Blood 7.9 mg/dL (8.5-10.1); Chloride, Blood 100 mmol/L (98-108); Creatinine, Blood 0.41 mg/dL (0.40-1.00); Glomerular Filtration Rate >60 (60-); Glucose, Blood 138 mg/dL (70-99); Magnesium, Blood 1.3 mg/dL (1.6-2.4); Phosphorus, Blood 1.3 mg/dL (2.5-4.9); Potassium, Blood 3.1 mmol/L (3.5-5.5); Sodium, Blood 134 mmol/L (136-145)
[2021-07-21 14:13] LABS: Anion Gap 8 mmol/L (6-16); Blood Urea Nitrogen 14 mg/dL (8-24); Bun/Creatinine Ratio 26.4 (12.0-20.0); CO2, Blood 26 mmol/L (21-32); Chloride, Blood 98 mmol/L (98-108); Creatinine, Blood 0.53 mg/dL (0.40-1.00); Glomerular Filtration Rate >60 (60-); Glucose, Blood 234 mg/dL (70-99); Phosphorus, Blood 3.2 mg/dL (2.5-4.9); Potassium, Blood 3.5 mmol/L (3.5-5.5); Sodium, Blood 132 mmol/L (136-145)
--- NOTE | 2021-07-21 18:47 | NUR ---
Alert and oriented x2 sometimes slow to respond. More weak on left side than right. Vital signs are stable.Continue on 2 L n/c, sp02 at 96% or greater. Two persons assist with ADLS. continue on NS AT 150 ml/hr. Call light within reach. Poor appepite. Continue to monitor.
[2021-07-21 21:07] LABS: Influenza A, PCR NEGATIVE (NEGATIVE); Influenza B, PCR NEGATIVE (NEGATIVE); Resp Syncytial Virus, PCR NEGATIVE (NEGATIVE)
[2021-07-21 22:13] LABS: SARS-Cov-2 (COVID-19) PCR, MMC POSITIVE (NEGATIVE)
[2021-07-22 05:13] LABS: BASOPHILS ABSOLUTE AUTO 0.01 K/mm3 (0.00-0.23); BASOPHILS PERCENT AUTO 0 % (0-2); EOSINOPHILS PERCENT AUTO 0 % (0-6); Hematocrit 34.8 % (33.0-51.0); Hemoglobin 11.9 g/dL (11.5-16.0); Mean Corpuscular HGB 31.2 pg (26.0-34.0); Mean Corpuscular HGB Conc 34.2 g/dL (31.5-36.5); Mean Corpuscular Volume 91 fL (80-100); Mean Platelet Volume 9.8 fL (9.1-12.4); Platelet Count 223 K/mm3 (150-400); RDW Coefficient Variation 12.8 % (11.7-14.2); RDW Standard Deviation 42.6 fL (35.1-46.3); Red Blood Cell Count 3.81 M/mm3 (3.80-5.20); White Blood Cell Count 5.39 K/mm3 (4.00-11.30)
[2021-07-22 05:34] LABS: IMMATURE GRAN ABSOLUTE AUTO 0.06 K/mm3 (0.00-0.10); IMMATURE GRAN PERCENT AUTO 1 % (0-1); LYMPHOCYTES ABSOLUTE AUTO 0.35 K/mm3 (0.84-5.20); LYMPHOCYTES PERCENT AUTO 7 % (21-46); MONOCYTES ABSOLUTE AUTO 0.24 K/mm3 (0.16-1.47); MONOCYTES PERCENT AUTO 5 % (4-13); NEUTROPHILS ABSOLUTE AUTO 4.73 K/mm3 (1.96-9.15); NEUTROPHILS PERCENT AUTO 88 % (41-73)
[2021-07-22 06:03] LABS: Albumin, Blood 1.8 g/dL (3.4-5.0); Anion Gap 12 mmol/L (6-16); Blood Urea Nitrogen 13 mg/dL (8-24); Bun/Creatinine Ratio 33.5 (12.0-20.0); CO2, Blood 24 mmol/L (21-32); Calcium, Blood 7.6 mg/dL (8.5-10.1); Chloride, Blood 101 mmol/L (98-108); Creatinine, Blood 0.39 mg/dL (0.40-1.00); Glomerular Filtration Rate >60 (60-); Glucose, Blood 243 mg/dL (70-99); Magnesium, Blood 1.4 mg/dL (1.6-2.4); Phosphorus, Blood 2.7 mg/dL (2.5-4.9); Potassium, Blood 3.9 mmol/L (3.5-5.5); Sodium, Blood 137 mmol/L (136-145)
--- NOTE | 2021-07-22 06:47 | NUR ---
PATIENT WAS ALERT AND ORIENTED X3, STABLE VITAL SIGNS, NO ACUTE CHANGES. PT WAS TESTED AND HAS COVID SO WAS PUT OF DROPLET PRECAUTION. PATIENT IS WEAK AND SLEPT THROUGH OUT THE SHIFT. CALL LIGHT IN REACH AND BED TO THE LOWEST POSTION.
--- NOTE | 2021-07-22 17:53 | NUR ---
SHIFT SUMMARY PATIENT IS ALERT AND ORIENTED X4, PLEASANT AND COOPERATIVE WITH CARE. PATIENT GOT OUT OF BED THIS SHIFT. PATIENT WAS ABLE TO WORK WITH PHYSICAL, OCCUPATIONAL, AND SPEECH THERAPY THIS SHIFT. THE PATIENT TOLERATED WELL. THE PATIENT WAS UPGRADED TO A MECHANICAL SOFT DIET THIS SHIFT. PATIENT IS ON 2 LPM HUMIDIFIED OXYGEN VIA NASAL CANNULA SATTING ABOVE 90% BLOOD SUGAR ELEVATED THIS SHIFT. DOCTOR NOTIFIED. INSULIN DOSE ADJUSTED. NEW DOSE GIVEN WITH DINNER. VSS. CALL LIGHT WITHIN REACH. THIS NURSE WILL CONTINUE TO CARE FOR THE PATIENT UNTIL SHIFT REPORT IS GIVEN TO ONCOMING NURSE.
[2021-07-22 23:12] LABS: Vancomycin, Trough 8.9 ug/mL (5.0-10.0)
[2021-07-23 04:54] LABS: BASOPHILS ABSOLUTE AUTO 0.02 K/mm3 (0.00-0.23); BASOPHILS PERCENT AUTO 0 % (0-2); EOSINOPHILS PERCENT AUTO 0 % (0-6); Hematocrit 37.5 % (33.0-51.0); Hemoglobin 12.5 g/dL (11.5-16.0); IMMATURE GRAN ABSOLUTE AUTO 0.18 K/mm3 (0.00-0.10); IMMATURE GRAN PERCENT AUTO 1 % (0-1); LYMPHOCYTES ABSOLUTE AUTO 0.71 K/mm3 (0.84-5.20); LYMPHOCYTES PERCENT AUTO 5 % (21-46); MONOCYTES ABSOLUTE AUTO 0.84 K/mm3 (0.16-1.47); MONOCYTES PERCENT AUTO 6 % (4-13); Mean Corpuscular HGB 30.7 pg (26.0-34.0); Mean Corpuscular HGB Conc 33.3 g/dL (31.5-36.5); Mean Corpuscular Volume 92 fL (80-100); Mean Platelet Volume 9.8 fL (9.1-12.4); NEUTROPHILS ABSOLUTE AUTO 12.32 K/mm3 (1.96-9.15); NEUTROPHILS PERCENT AUTO 88 % (41-73); Platelet Count 292 K/mm3 (150-400); RDW Coefficient Variation 12.8 % (11.7-14.2); RDW Standard Deviation 43.3 fL (35.1-46.3); Red Blood Cell Count 4.07 M/mm3 (3.80-5.20); White Blood Cell Count 14.07 K/mm3 (4.00-11.30)
[2021-07-23 05:12] LABS: Albumin, Blood 2.1 g/dL (3.4-5.0); Anion Gap 12 mmol/L (6-16); Blood Urea Nitrogen 19 mg/dL (8-24); Bun/Creatinine Ratio 34.7 (12.0-20.0); CO2, Blood 24 mmol/L (21-32); Calcium, Blood 8.3 mg/dL (8.5-10.1); Chloride, Blood 102 mmol/L (98-108); Creatinine, Blood 0.55 mg/dL (0.40-1.00); Glomerular Filtration Rate >60 (60-); Glucose, Blood 332 mg/dL (70-99); Magnesium, Blood 1.6 mg/dL (1.6-2.4); Phosphorus, Blood 1.4 mg/dL (2.5-4.9); Potassium, Blood 3.1 mmol/L (3.5-5.5); Sodium, Blood 138 mmol/L (136-145)
--- NOTE | 2021-07-23 06:26 | NUR ---
A/OX4. ON 2-4L OF O2. SHE IS A 2 PA TO CHAIR OR BSC. VERY WEAK AND DYSPNEIC. HAD A HEADACHE AND RECEIVIED TYLENOL THAT SEEMED TO WORK. ACCBETSY AC/HS.
[2021-07-23 16:55] LABS: Vancomycin, Trough 21.8 ug/mL (5.0-10.0)
--- NOTE | 2021-07-23 17:06 | NUR ---
SUMMARY PT RESTING QUIETLY IN BED, PT WAKES EASILY, HAS BEEN COOPERATIVE WITH CARE T/O THE DAY, UP IN THE CHAIR FOR MOST OF THE DAY, IS A 2P ASSIST WITH THE GAIT BELT AND WALKER TO THE COMMODE, PT HAS OCC INCONTINENCE, HAS A DRY HACKING COUGH, REMAINS ON 2L NC, POOR APPETITE, VSS, WILL CONT TO MONITOR
--- NOTE | 2021-07-24 04:42 | NUR ---
PROGRESS NOTE: PT'S VITALS WERE TAKEN AND AND DESATURATION TO THE HIGH 70'S WAS NOTED. HER SUPPLEMENTAL O2 WAS INCREASED TO 6L WITH LITTE INCREASE. SHE IS A/OX4 AND HER OTHER VS ARE STABLE THE HOSPITALIST WAS NOTIFIED AND THE PT WAS PUT ON CONTINOUS PULSE OX, RT HAS TRIED AN OXIMIZER AND NOW A NON-REBREATHER. SHE STILL REMAINS IN THE HIGH 70s-LOW 80s.
[2021-07-24 04:48] LABS: BASOPHILS ABSOLUTE AUTO 0.02 K/mm3 (0.00-0.23); BASOPHILS PERCENT AUTO 0 % (0-2); EOSINOPHILS PERCENT AUTO 0 % (0-6); Hemoglobin 13.5 g/dL (11.5-16.0); IMMATURE GRAN PERCENT AUTO 2 % (0-1); LYMPHOCYTES ABSOLUTE AUTO 0.63 K/mm3 (0.84-5.20); LYMPHOCYTES PERCENT AUTO 5 % (21-46); MONOCYTES ABSOLUTE AUTO 0.63 K/mm3 (0.16-1.47); MONOCYTES PERCENT AUTO 5 % (4-13); Mean Corpuscular HGB 30.9 pg (26.0-34.0); Mean Corpuscular HGB Conc 33.8 g/dL (31.5-36.5); Mean Corpuscular Volume 92 fL (80-100); Mean Platelet Volume 9.7 fL (9.1-12.4); NEUTROPHILS ABSOLUTE AUTO 10.96 K/mm3 (1.96-9.15); NEUTROPHILS PERCENT AUTO 88 % (41-73); Platelet Count 304 K/mm3 (150-400); RDW Coefficient Variation 13.1 % (11.7-14.2); RDW Standard Deviation 44.3 fL (35.1-46.3); Red Blood Cell Count 4.37 M/mm3 (3.80-5.20); White Blood Cell Count 12.44 K/mm3 (4.00-11.30)
[2021-07-24 05:10] LABS: Albumin, Blood 1.8 g/dL (3.4-5.0); Anion Gap 9 mmol/L (6-16); Blood Urea Nitrogen 21 mg/dL (8-24); Bun/Creatinine Ratio 38.6 (12.0-20.0); CO2, Blood 24 mmol/L (21-32); Calcium, Blood 7.8 mg/dL (8.5-10.1); Chloride, Blood 107 mmol/L (98-108); Creatinine, Blood 0.54 mg/dL (0.40-1.00); Glomerular Filtration Rate >60 (60-); Glucose, Blood 58 mg/dL (70-99); Magnesium, Blood 1.6 mg/dL (1.6-2.4); Phosphorus, Blood 2.5 mg/dL (2.5-4.9); Sodium, Blood 140 mmol/L (136-145)
--- NOTE | 2021-07-24 06:11 | NUR ---
0600 PT RECEIVED FROM FLOOR, STATES SHE GOES BY [facility]. BREATHING IS LABORED, SATS 97%, RATE 40'S, PT SHIVERING, TEMP 100.1. AIRVO MISSING NARES, REPLACED. PT INCONTINENT OF BLADDER, CLEANED UP AND REPOSITIONED. PT NOT SPEAKING MUCH, SHORT ANSWERS ONLY, NEEDS MUCH HELP TO TURN AND REPOSITION. HR 130'S, BP 135/92. LEFT HAND IV NS @ 100ML/HR.
--- NOTE | 2021-07-24 06:16 | NUR ---
LUNG SOUNDS DIMINISHED T/O, PT NOT ABLE TO TAKE DEEP BREATHS, CONTINUES TO SHAKE, ANSWERS YES TO IT JUST STARTING, BOWEL TONES HYPOACTIVE, PULSES BOUNDING IN ALL EXTREMITIES. HEART TONES BOUNDING, PT CONT TO JUST STARE, NOT TRYING TO FOLLOW DIRECTIONS. DENIES SHORTNESS OF BREATH ALTHOUGH RATE CONTINUES AT 40+, RESISTANT TO ALLOW ME TO LOOK AT HER ARMS,IE PLACE BP CUFF, OR TO ASSESS FOR ADDITIONAL IV PLACEMENT. JUST PULLS ARMS BACK TO CORE.
--- NOTE | 2021-07-24 06:39 | NUR ---
ASKED [facility] IF IT CAME TO THE NEED WOULD SHE ACCEPT A BREATHING TUBE AND SHE SAID, "NO". WILL COMMUNICATE THIS TO THE PHYSICIAN.
--- NOTE | 2021-07-24 06:41 | NUR ---
PTs O2 SATS WERE NOT MAINTAINING ABOVE 90 ON AIRVO AT 65L/100%. THE COMMANDING OFFICER TRAFFIC DIVISION LOUISE WAS GIVEN REPORT. SHE WAS TRANSFERED DOWN TO THE ICU.
--- NOTE | 2021-07-24 07:38 | NUR ---
CARE OF PT ASSUMED AT 0700. DR DELEON AT BEDSIDE. PT AWAKE, SLOW TO ANSWER, DENIES PAIN, SOB. RESP 40'S SOMEWHAT LABORED. PT ON AIRVO. RT AT BEDSIDE. FIO2 TITRATED DOWN FROM 100% TO 80% ON 65L. EKG COMPLETED. ARTIFACT DUE TO SHIVERING. PT HAS TEMP 101.1. PT SINUS TACHY W RATE 110-130. BP WNL. SATS 93-99%. CTA ORDERED. UNABLE TO OBTAIN ABG AT THIS TIME. LUNG SOUNDS TO RIGHT SIDE ALMOST ABSENT. DIMINISHED TO LEFT SIDE W FINE CRACKLES TO LLL.
--- NOTE | 2021-07-24 08:25 | NUR ---
BACK FROM CT. TEMP 102.0. EKG COMPLETED. DR FALL CALLED AND UPDATED.
--- NOTE | 2021-07-24 08:44 | NUR ---
PT UHNABLE TO SWALLOW SAFELY D/T WORK OF BREATHING, COUGHED ON SM SIP OF WATER. WILL MAKE NPO FOR NOW. BS 65, 1/2 AMP D50 TO BE GIVEN.
[2021-07-24 09:09] LABS: PCO2 Arterial 29.5 mmHg (35-45); PO2 Arterial 30 mmHg (80-100); pH Blood Arterial 7.52 (7.35-7.45)
[2021-07-24 09:35] LABS: Source, Urine Catheter
--- NOTE | 2021-07-24 09:35 | NUR ---
ABG RESULTS GIVEN TO DR FALL. CPAP TO BE PLACED, RT NOTIFED. FAULKNER TEMP PROBE PLACED PER DR FALL. PT PASTOR WELL. YEAST TO ALLY AREA NOTED. PT'S BP TRENDING DOWN, HYPOTENSIVE W MAP >65. PICC LINE TO BE PLACED. TYLENOL OK GIVEN, FAN ON PT.
[2021-07-24 10:04] LABS: Bilirubin, Urine Neg (Neg); Blood, Urine 4+ (Neg); Glucose Qualitative, Urine 4+ (Neg); Ketones, Urine Neg (Neg); Leukocyte Esterase, Urine 2+ (Neg); Nitrite, Urine Neg (Neg); Protein, Urine 2+ (Neg); Specific Gravity, Urine 1.015 (1.003-1.022); Urobilinogen, Urine NORM (Normal)
[2021-07-24 10:08] LABS: Appearance, Urine Hazy (Clear); Bacteria Few /hpf; Color, Urine Yellow (P-Yellow); Squamous Epithelial Cells Few /hpf (Few)
--- NOTE | 2021-07-24 13:11 | NUR ---
TV'S LOW 200'S AT 1200, RT CALLED, PRESSURE INCREASED TO 12. SATS >90%, TV IMPROVED. TEMP DECREASING, BP SLOWLY TRENDING UP W MAPS >65. PRECEDEX REMAINS AT 0.7MCG. BS IMPROVED.
--- NOTE | 2021-07-24 15:16 | NUR ---
PT'S SON LADI IN TO SEE PT. DR FALL AT BEDSIDE AND SPOKE W LADI FOR OVER 30MIN. QUESTIONS ANSWERED.
--- NOTE | 2021-07-24 17:42 | NUR ---
PT CONT TO PASTOR CPAP WITH PRECEDEX AT 0.7MCG. NS AT 100CC/HR. LEVOPHED ORDERED BUT NOT STARTED BP RESPONDED TO BOLUS. PT IS NOW AFEBRILE.
[2021-07-24 20:16] LABS: Vancomycin, Trough 20.5 ug/mL (5.0-10.0)
--- NOTE | 2021-07-24 22:20 | NUR ---
SHIFT ASSESSMENT PT ALERT AND ORIENTED BUT SLOW TO RESPOND. ON CPAP-12 @ 55% c O2 SATS >94%. PRECEDEX GTT INFUSING @ 0.7MCG/KG/HR TO ASSIST WITH CPAP COMPLIANCE. NS @ 100MLS/HR IN POWERGLIDE. PICC LINE PATENT c IV ABX. PT IN BL SOFT WRIST RESTRAINTS DUE TO PULLING ON CPAP. TEMP PROBE FAULKNER DRAINING YELLOW URINE, PT AFEBRILE. WILL CONTINUE TO MONITOR CLOSELY.
[2021-07-25 04:38] LABS: BASOPHILS ABSOLUTE AUTO 0.03 K/mm3 (0.00-0.23); BASOPHILS PERCENT AUTO 0 % (0-2); EOSINOPHILS PERCENT AUTO 0 % (0-6); Hematocrit 38.7 % (33.0-51.0); Hemoglobin 13.1 g/dL (11.5-16.0); IMMATURE GRAN ABSOLUTE AUTO 0.18 K/mm3 (0.00-0.10); IMMATURE GRAN PERCENT AUTO 2 % (0-1); LYMPHOCYTES ABSOLUTE AUTO 0.59 K/mm3 (0.84-5.20); LYMPHOCYTES PERCENT AUTO 6 % (21-46); MONOCYTES ABSOLUTE AUTO 0.35 K/mm3 (0.16-1.47); MONOCYTES PERCENT AUTO 4 % (4-13); Mean Corpuscular HGB 31.3 pg (26.0-34.0); Mean Corpuscular HGB Conc 33.9 g/dL (31.5-36.5); Mean Corpuscular Volume 93 fL (80-100); Mean Platelet Volume 9.8 fL (9.1-12.4); NEUTROPHILS ABSOLUTE AUTO 8.68 K/mm3 (1.96-9.15); NEUTROPHILS PERCENT AUTO 88 % (41-73); Platelet Count 256 K/mm3 (150-400); RDW Coefficient Variation 13.2 % (11.7-14.2); Red Blood Cell Count 4.18 M/mm3 (3.80-5.20); White Blood Cell Count 9.83 K/mm3 (4.00-11.30)
[2021-07-25 05:17] LABS: Albumin, Blood 1.5 g/dL (3.4-5.0); Anion Gap 8 mmol/L (6-16); Blood Urea Nitrogen 26 mg/dL (8-24); Bun/Creatinine Ratio 49.5 (12.0-20.0); CO2, Blood 21 mmol/L (21-32); Calcium, Blood 7.3 mg/dL (8.5-10.1); Chloride, Blood 113 mmol/L (98-108); Creatinine, Blood 0.53 mg/dL (0.40-1.00); Glomerular Filtration Rate >60 (60-); Glucose, Blood 173 mg/dL (70-99); Magnesium, Blood 1.5 mg/dL (1.6-2.4); Phosphorus, Blood 2.9 mg/dL (2.5-4.9); Potassium, Blood 4.4 mmol/L (3.5-5.5); Sodium, Blood 142 mmol/L (136-145)
--- NOTE | 2021-07-25 06:48 | NUR ---
SHIFT SUMMARY PT ALERT, FOLLOWING SIMPLE COMMANDS, REMAINS ON THE PRECEDEX @ 0.7MCG/KG/HR. CPAP ON T/O THE NIGHT, FIO2 INCREASED TO 60% TO MAINTAIN PULSE OX >90%. RR IN THE UPPER 30'S DURING TURNS/ ORAL CARE. REPLENISHING MAGNESIUM AT THIS TIME. TEMP PROBE FAULKNER DRAINING JOHAN URINE, REMAINS AFEBRILE. SOFT WRIST RESTRAINTS REMAIN ON DUE TO PT PULLING AT CPAP. REPORT TO ONCOMING NURSE.
--- NOTE | 2021-07-25 08:10 | NUR ---
ASSUMED CARE: REPORT RECEIVED FROM KWAN Coombs RN. ASSUMED CARE OF THIS PT AT APPROX 0700. ON ASSESSMENT, THE PT IS RESTING QUIETLY & AWAKENS EASILY TO VERBAL STIMULUS. SHE IS ORIENTED TO SELF & FOLLOWING DIRECTIONS DURING THIS TIME. SHE IS INCREASINGLY ANXIOUS W/ ADLs & REPOSITIONING, PRECEDEX INFUSING AT 0.7 MCG/KG/HR. LS ARE DIM T/O, PT ON CPAP 12 W/ 60% FIO2. O2 SATS > 89% ON AVG. MONITOR SHOWS SR W/ HR 60s, BP STABLE. PT NPO R/T CPAP DEPENDENCE & ASPIRATION RISK. TEMP FAULKNER PATENT/ DRAINING YELLOW URINE. SKIN CONDITION OVERALL INTACT, Q2H REPOSITIONING TO MAINTAIN SKIN INTEGRITY. WILL CONTINUE TO MONITOR & UPDATE NEEDED.
--- NOTE | 2021-07-25 09:30 | NUR ---
DR HOOK: PROVIDER AT BEDSIDE TO EVAL PT. THIS RN HAS UPDATED HIM ON PT's CURRENT STATUS. HE IS CONSIDERING CONSULTING DR ASKEW & WILL PLACE ORDERS IF NEEDED. NO OTHER CHANGES AT THIS TIME.
--- NOTE | 2021-07-25 17:26 | NUR ---
SHIFT SUMMARY: NO ACUTE CHANGES SINCE PRIOR UPDATES. PT REMAINS OVERALL RESTING QUIETLY, AWAKENS EASILY TO VERBAL STIMULUS. INCREASED ANXIETY W/ ADLs & REPOSITIONING. LS DIM T/O, PT ON CPAP 12 & 75% FIO2. O2 SATS > 89% ON AVG. PT DOES NOT TOLERATE REPOSITIONING TO LEFT SIDE WELL W/ FIO2 INCREASED AFTER REPOSITIONING THIS AFTERNOON. MONITOR SHOWS SR W/ HR 60s, BP STABLE. NPO R/T CPAP DEPENDENCE & ASPIRATION RISK. FAULKNER PATENT/ DRAINING DARK YELLOW URINE. SKIN CONDITION OVERALL FRAGILE W/ Q2H REPOSITIONING THIS SHIFT TO MAINTAIN SKIN INTEGRITY. WILL CONTINUE TO MONITOR & REPORT OFF TO ONCOMING RN.
[2021-07-25 19:41] LABS: Vancomycin, Trough 24.9 ug/mL (5.0-10.0)
[2021-07-26 05:00] LABS: BASOPHILS ABSOLUTE AUTO 0.03 K/mm3 (0.00-0.23); BASOPHILS PERCENT AUTO 0 % (0-2); EOSINOPHILS PERCENT AUTO 0 % (0-6); Hematocrit 41.5 % (33.0-51.0); Hemoglobin 13.4 g/dL (11.5-16.0); IMMATURE GRAN ABSOLUTE AUTO 0.19 K/mm3 (0.00-0.10); IMMATURE GRAN PERCENT AUTO 2 % (0-1); LYMPHOCYTES ABSOLUTE AUTO 0.62 K/mm3 (0.84-5.20); LYMPHOCYTES PERCENT AUTO 5 % (21-46); MONOCYTES ABSOLUTE AUTO 0.32 K/mm3 (0.16-1.47); MONOCYTES PERCENT AUTO 3 % (4-13); Mean Corpuscular HGB 30.8 pg (26.0-34.0); Mean Corpuscular HGB Conc 32.3 g/dL (31.5-36.5); Mean Corpuscular Volume 95 fL (80-100); NEUTROPHILS ABSOLUTE AUTO 10.35 K/mm3 (1.96-9.15); NEUTROPHILS PERCENT AUTO 90 % (41-73); Platelet Count 235 K/mm3 (150-400); RDW Coefficient Variation 13.2 % (11.7-14.2); RDW Standard Deviation 46.7 fL (35.1-46.3); Red Blood Cell Count 4.35 M/mm3 (3.80-5.20); White Blood Cell Count 11.51 K/mm3 (4.00-11.30)
--- NOTE | 2021-07-26 06:11 | NUR ---
END OF SHIFT SUMMARY: PATIENT HAS BEEN COOPERATIVE TONIGHT SO RESTRAINTS WERE REMOVED AT 2200. SHE HAS BEEN ANXIOUS AT TIMES AND RR HAS BEEN IN THE 40-50S SEVERAL TIMES. PRECEDEX DRIP IS HELPING A LOT. IT IS CURRENTLY INFUSING AT 0.9MCG/KG/MIN AND HAS BEEN HIGH AT 1.1 WHEN UNABLE TO CALM DOWNN. SHE DEFINITELY HAS BETTER O2 SATS WHEN TURNED TOWARDS HER LEFT AND WE HAD TO GO UP ON HER O2 TO 85% AFTER HER FIRST TURN TO THE RIGHT SIDE. SHE HAS BEEN ABLE TO TOLERATE THE 85% WITHOUT HAVING TO TITRATE UP ANY FURTHER.
[2021-07-26 06:40] LABS: Alanine Aminotransfer (ALT/SGP 31 U/L (12-78); Albumin, Blood 1.3 g/dL (3.4-5.0); Albumin/Globulin Ratio 0.5 (0.8-1.8); Alk Phos 81 U/L (50-136); Anion Gap 11 mmol/L (6-16); Aspartate Aminotrans (AST/SGOT 85 U/L (12-37); Bilirubin, Total 0.5 mg/dL (0.1-1.0); Blood Urea Nitrogen 36 mg/dL (8-24); Bun/Creatinine Ratio 75.8 (12.0-20.0); CO2, Blood 16 mmol/L (21-32); Calcium, Blood 6.8 mg/dL (8.5-10.1); Chloride, Blood 116 mmol/L (98-108); Creatinine, Blood 0.48 mg/dL (0.40-1.00); Ferritin, Serum 4435 ng/mL (8-252); Globulin, Blood 2.8 g/dL (2.2-4.0); Glomerular Filtration Rate >60 (60-); Glucose, Blood 203 mg/dL (70-99); Lactate Dehydrogenase (Ld),Bld 1055 U/L (100-240); Potassium, Blood 5.5 mmol/L (3.5-5.5); Sodium, Blood 143 mmol/L (136-145); Total Protein, Blood 4.1 g/dL (6.4-8.2)
--- NOTE | 2021-07-26 07:18 | NUR ---
ASSUMED CARE: PT RESTING IN BED WITH CPAP AT 10 WITH 85% FIO2. PRECEDEX AT 0.7 MCG/KG. NS AT 100/HR. RESTING QUIETLY AT THIS TIME. NSR ON TELE IN THE 70S, RESPIRATIONS IN THE 40S.
--- NOTE | 2021-07-26 08:18 | NUR ---
PT STARTED DESATURATING TO 84%. RN WENT TO ROOM AND PT WAS MOANING AND HAD FINGERS ON RIGHT HAND STRAP OF CPAP MASK. REDIRECTED PT AND ADJUSTED MASK. INCREASED PRECEDEX TO 1.2 AND INCREASED FIO2 TO 100%. PT CURRENTLY SATTING AT 92% ON THIS WITH RESPIRATIONS IN 40S
--- NOTE | 2021-07-26 08:39 | NUR ---
CALL TO DR HOOK TO GIVE HIM STATUS UPDATE ON PT. DR MADE AWARE THAT PT IS AT 100% FIO2 WITH SATS AT 91% AND RESPIRATIONS IN 40S TO 50S. DR AWARE THAT THERE IS NO IMMIGRATION PATROL INSPECTOR CONSULT AND SUGGESTED THAT SON SHOULD BE CONTACTED. DR VALVERDE STATED HE WOULD COME DOWN TO UNIT TO SPEAK TO DR MENSAH ABOUT PT
--- NOTE | 2021-07-26 09:23 | NUR ---
DR VALVERDE CALLED PT'S SON TO GIVE HIM AN UPDATE AND TO LET HIM KNOW THAT INTUBATION IS BECOMING IMMENENT AND WANTED TO KNOW HIS THOUGHTS. SON SAYS HE WANTS TO COME IN AND SEE HER BEFORE HE MAKES HIS DECISION. RECREATION FACILITY ATTENDANT APPROVED EARLY VISITATION. CALL TO PALLIATIVE CARE TO GET THEM AWARE AND ON CASE AND WILL LET THEM KNOW WHEN FAMILY ARRIVES. SCREENER AWARE THAT PT'S FAMILY WILL BE COMING IN EARLY
--- NOTE | 2021-07-26 10:13 | NUR ---
PT'S SON LADI HAS ARRIVED TO BEDSIDE. PALLIATIVE CARE NURSE ENTERING ROOM AT THIS TIME. PT REMAINS ON PRECEDEX 1.2 MCG/KG, 95% FIO2 AND SATTING AT 91%. RESPIRATORY RATE IN 50S.
--- NOTE | 2021-07-26 11:27 | NUR ---
DR ARNOLD HAD MEETING WITH PT'S FAMILY AND FAMILY CAME TO THE AGREEMENT OF DNR STATUS AND TO CONTINUE WITH TREATMENT AND MAINTAIN COMFORT FOR PATIENT. DYE REEL OPERATOR AND PALLIATIVE CARE AWARE
--- NOTE | 2021-07-26 15:16 | NUR ---
RT CHANGED PT'S SETTINGS TO WITH 100% FIO2. PT RR 30S-40S. PT CONTINUES WITH PRECEDEX AT 1.0MCG/KG, FENTANYL GTT AT 50MCG/HR. DR ARNOLD AWARE OF CURRENT SETTINGS. PT APPEARS COMFORTABLE AT THIS TIME.
--- NOTE | 2021-07-26 15:17 | NUR ---
Spoke with pt's son by phone, then met him at pt's room. He is very realistic regarding the seriousnes of his mom's current status. She is on close to 100% Fi02, Resp rate up to 50/min and even a small airleak for a few seconds causes her saturations to drop into the 80's and takes time to recover. She remains on bipap. Offered therapeutic listening and condolences during the call in which pt's son tells me he lost 3 close relatives to Covid so far this year-- and that all 3 after being ventilated. He does not believe placing his mom on a vent would change things. Pt's son met with Dr. Dueñas and it was determined that pt would have a DNR status. Plan to check in with son tomorrow.
--- NOTE | 2021-07-26 18:03 | NUR ---
SHIFT SUMMARY: PT ON BIPAP WITH SETTINGS . FIO2 100%. SATURATION 84%. SAFETY SUPERVISOR AWARE. CALL TO PT'S SON TO LET HIM KNOW OF PT'S STATUS. PRECEDEX GTT AT 1 MCG/KG AND FENTANYL GTT AT 50MCG/HR
[2021-07-26 19:48] LABS: Vancomycin, Trough 20.1 ug/mL (5.0-10.0)
[2021-07-27 04:26] LABS: BASOPHILS ABSOLUTE AUTO 0.05 K/mm3 (0.00-0.23); BASOPHILS PERCENT AUTO 0 % (0-2); EOSINOPHILS PERCENT AUTO 0 % (0-6); Hematocrit 41.8 % (33.0-51.0); Hemoglobin 13.7 g/dL (11.5-16.0); IMMATURE GRAN ABSOLUTE AUTO 0.18 K/mm3 (0.00-0.10); IMMATURE GRAN PERCENT AUTO 1 % (0-1); LYMPHOCYTES ABSOLUTE AUTO 0.93 K/mm3 (0.84-5.20); LYMPHOCYTES PERCENT AUTO 7 % (21-46); MONOCYTES ABSOLUTE AUTO 0.23 K/mm3 (0.16-1.47); MONOCYTES PERCENT AUTO 2 % (4-13); Mean Corpuscular HGB 31.4 pg (26.0-34.0); Mean Corpuscular HGB Conc 32.8 g/dL (31.5-36.5); Mean Corpuscular Volume 96 fL (80-100); NEUTROPHILS ABSOLUTE AUTO 11.43 K/mm3 (1.96-9.15); NEUTROPHILS PERCENT AUTO 89 % (41-73); RDW Coefficient Variation 13.5 % (11.7-14.2); RDW Standard Deviation 48.2 fL (35.1-46.3); Red Blood Cell Count 4.37 M/mm3 (3.80-5.20); White Blood Cell Count 12.82 K/mm3 (4.00-11.30)
[2021-07-27 05:39] LABS: Mean Platelet Volume 10.1 fL (9.1-12.4); Platelet Count 147 K/mm3 (150-400)
[2021-07-27 05:42] LABS: Anion Gap 7 mmol/L (6-16); Blood Urea Nitrogen 46 mg/dL (8-24); Bun/Creatinine Ratio 71.1 (12.0-20.0); CO2, Blood 19 mmol/L (21-32); Calcium, Blood 6.7 mg/dL (8.5-10.1); Chloride, Blood 122 mmol/L (98-108); Creatinine, Blood 0.65 mg/dL (0.40-1.00); Glomerular Filtration Rate >60 (60-); Glucose, Blood 199 mg/dL (70-99); Potassium, Blood 4.6 mmol/L (3.5-5.5); Sodium, Blood 148 mmol/L (136-145)
--- NOTE | 2021-07-27 06:14 | NUR ---
END OF SHIFT SUMAMRY: PATIENT HAS BEEN KEPT COMFORTABLE ALL NIGHT. PRECEDEX INFUSING AT 1.4MCG/KG/MIN WELL A FENTANYL K9 HANDLER INFUSING AT 50MCG/HR. SHE IS NOT TOLERATING TURNS. SHE WILL WAKE UP BUT DE-SATS WHEN TRIES TALKING. O2 SATS AT 85% AT BEGINNING OF SHIFT AND SHE HAS REMAINED 77-83% MOST OF THE SHIFT TONIGHT. RT PLACED HER ON AVAP TO SEE IF IT WOULD HELP HER O2 COME UP AT ALL AND IT DID NOT. SHE REMAINS ON AVAP ON MAX SETTINGS AT THIS TIME. NO COUGH OR SECRETIONS. BARELY TOLERATES ORAL CARE. A FAMILY MEMBER CALLED LAST NIGHT ASKING TO COME AND SHE WAS APPROVED BUT NEVER SHOWED UP. NO FAMILY HAS CALLED FOR UPDATES. SHE NEEDS TO BE MADE COMFORT TODAY ONCE FAMILY ARRIVES.
--- NOTE | 2021-07-27 07:16 | NUR ---
ASSUMED CARE: PT ON AVAP AT 100% FIO2 SATTING 78-81% ON THIS. MESSAGE LEFT WITH PALLIATIVE CARE TO DISCUSS PT FURTHER. NSR IN 60S ON TELE. PRECEDEX AND FENTANYL GTTS IN PLACE. NO ACUTE NEEDS AT THIS TIME.
--- NOTE | 2021-07-27 08:42 | NUR ---
PT'S SON CALLED AND WAS GIVEN UPDATE ON HIS MOTHER'S STATUS. MADE HIM AWARE THAT PT'S O2 SATURATIONS ARE BETWEEN 78 AND 82% AND WE ARE NOT ABLE TO INCREASE THOSE NUMBERS. LET HIM KNOW THAT HER BLOOD PRESSURE IS STARTING TO TREND DOWN WELL. STATED HE AND FAMILY WILL COME TO SEE PT LATER THIS AM. SCREENER AWARE THAT VISITORS ARE ALLOWED IN
--- NOTE | 2021-07-27 11:28 | NUR ---
PT'S BP BEGINNING TO DROP WITH SBP IN 70S-80S WITH MAPS IN HIGH 50S TO 60S. DISCUSSED WITH DR MENSAH WHO ATTEMPTED TO CALL PT'S SON AND PT'S SON WAS ON HIS WAY TO HOSPITAL. PT'S SON IS HERE NOW AND IS OUTSIDE ROOM DISCUSSING WITH FAMILY PT'S PROGNOSIS
--- NOTE | 2021-07-27 13:10 | NUR ---
Orders both placed and d/c'd in pt's chart in error. Appropriate staff notified, and orders corrected.
--- NOTE | 2021-07-27 14:21 | NUR ---
SPOKE WITH DR ARNOLD REGARDING PT'S BP WITH SYSTOLICS IN 60S AND 70S. NO NEW ORDERS AT THIS TIME DUE TO FAMILY WISHES
--- NOTE | 2021-07-27 16:00 | NUR ---
PT'S SON CAME OUT OF ROOM AND ASKED HOW LONG HIS MOM COULD LIVE LIKE THIS. THIS RN REMINDED HIM THAT PT'S BLOOD PRESSURE HAS BEEN DROPPING. LET HIM KNOW THAT IF MASK WAS REMOVED PT COULD PASS FAIRLY QUICKLY. LEAVING THE MASK ON COULD ALLOW THIS TO GO ON FOR DAYS OR UNTIL HER HEART GIVES OUT. FAMILY DID NOT CHANGE ANY FURTHER DECISIONS.
--- NOTE | 2021-07-27 17:30 | NUR ---
Pt remains on bipap; son has been in to visit today. Pt's blood pressures have been lower than usual, and she appears to be "hanging in there" for now. Jevon is aware of pt's overal health condions at this time.
--- NOTE | 2021-07-27 19:30 | NUR ---
ASSUMED CARE PATIENT LYING IN BED W/ EYES CLOSED AND BIPAP IN PLACE ON AVAP SETTINGS OF PRESSURE 14, RATE 22, FIO2 100% W/ SPO2 LOW 90'S. PATIENT IS NOT RESPONSIVE AND DOES NOT FOLLOW COMMANDS. FAULKNER PATENT AND DRAINING DARK YELLOW/ORANGE URINE W/ LARGE AMOUNT OF SEDIMENT. PRECEDEX INF @ 1.4MCG/KG/HR, FENTANYL @ 100MCG/HR, NS TKO AND NS @ 100ML/HR. ABSENT ANTHONY PEDAL PULSES, PT AND RADIAL PULSES BY DOPPLER ONLY ANTHONY. BP MAPS ONLY IN THE 50'S; PHYSICIAN AWARE. REPORT COMPLETED W/ DAYSHIFT RN.
--- NOTE | 2021-07-28 05:50 | NUR ---
son (Bill) called and informed that patient HR and pulse ox levels are dropping on the monitor. Primary RN Nancy is at bedside. Son informed he is able to come in if he would like. Son states he lives about [place] away but will come to bedside steve.
== END 2021-07-28 05:54 | DRG 177 ==
LOC: ER 11:58 → ERHOLD 16:29 → ICUW 16:29 → MEDS 19:44 → ICUW 07-24 05:42
PROVIDERS: Emergency Medicine; Hospitalist; Internal Medicine Critical Care Medicine; ADMIT Family Medicine
PROC: 8E0ZXY6 Isolation (ICD-10-PCS; principal; 2021-07-20)
PROC: 3E0333Z Introduction of Anti-inflammatory into Peripheral Vein, Percutaneous Approach (ICD-10-PCS; 2021-07-21)
PROC: 5A0935A Assistance with Respiratory Ventilation, Less than 24 Consecutive Hours, High Flow/Velocity Cannula (ICD-10-PCS; 2021-07-24)
PROC: 3E033XZ Introduction of Vasopressor into Peripheral Vein, Percutaneous Approach (ICD-10-PCS; 2021-07-24)
PROC: 5A09457 Assistance with Respiratory Ventilation, 24-96 Consecutive Hours, Continuous Positive Airway Pressure (ICD-10-PCS; 2021-07-24)
DX: U07.1 COVID-19 (principal); J96.01 Acute respiratory failure with hypoxia; J69.0 Pneumonitis due to inhalation of food and vomit; J12.82 Pneumonia due to coronavirus disease 2019; J44.1 Chronic obstructive pulmonary disease with (acute) exacerbation; J44.0 Chronic obstructive pulmonary disease with (acute) lower respiratory infection; E87.1 Hypo-osmolality and hyponatremia; G93.1 Anoxic brain damage, not elsewhere classified; Z66 Do not resuscitate; N30.90 Cystitis, unspecified without hematuria; Z51.5 Encounter for palliative care; K52.9 Noninfective gastroenteritis and colitis, unspecified; I25.10 Atherosclerotic heart disease of native coronary artery without angina pectoris; E11.69 Type 2 diabetes mellitus with other specified complication; I25.2 Old myocardial infarction; Z95.5 Presence of coronary angioplasty implant and graft; E78.5 Hyperlipidemia, unspecified; M85.80 Other specified disorders of bone density and structure, unspecified site; Z79.899 Other long term (current) drug therapy; Z88.2 Allergy status to sulfonamides; Z88.8 Allergy status to other drugs, medicaments and biological substances; E87.6 Hypokalemia; E86.0 Dehydration; K80.20 Calculus of gallbladder without cholecystitis without obstruction; Z87.891 Personal history of nicotine dependence; M79.7 Fibromyalgia; Z90.710 Acquired absence of both cervix and uterus; Z78.1 Physical restraint status
CPT/HCPCS: 0241U; 36415; 36569; 36600; 51702; 70450; 71046; 71260; 74177; 80048; 80053; 80069; 80202; 81001; 82306; 82330; 82728; 82803; 82947; 83036; 83615; 83690; 83735; 84145; 84484; 85025; 85379; 86140; 87040; 87086; 92526; 92610; 93005; 93010; 94640; 94660; 94760; 96365; 96367; 97110; 97162; 97166; 97530; 97535; 99285-25; A9270; C1751; C9113; J0610; J0696; J1100; J1650; J1815; J2930; J3010; J3370; J3475; J3480; J7030; J7050; J7060; Q9967